=== PATIENT | male | born 1980 | race Asian ===

== ENCOUNTER 2021-07-24 05:49 | Emergency (ER) | payer OTHER ==
[~2021-07-24] VITALS: Ht 180.3 cm; Wt 113.4 kg
[2021-07-24 05:56] VITALS: TEMP 98.3
[2021-07-24 06:47] VITALS: BP 133/78
== END 2021-07-24 06:58 | disposition home or self-care (01) ==
LOC: ED 05:49
PROC: 08C1XZZ Extirpation of Matter from Left Eye, External Approach (ICD-10-PCS; principal; 2021-07-24)
DX: S05.52XA Penetrating wound with foreign body of left eyeball, initial encounter (principal); V64.5XXA Driver of heavy transport vehicle injured in collision with heavy transport vehicle or bus in traffic accident, initial encounter; Y92.89 Other specified places as the place of occurrence of the external cause
CPT/HCPCS: 99283